=== PATIENT | male | born 1995 | race Native Hawaiian/Other Pacific Islander ===

== ENCOUNTER 2018-07-01 22:44 | Emergency (ER) | payer SELFPAY ==
[2018-07-01 23:10] VITALS: BP 116/74; PULSE 94; RESP 16; TEMP 98.5; O2SAT 98
[2018-07-01] MEDS ORDERED: Amoxicillin-Clav 875-125 mg Tab PO STA (23:21)
[2018-07-01] MEDS ORDERED: Tdap Vaccine 0.5 ml Vial (10-64 yrs) IM ONE ×2 (23:22→23:29)
--- NOTE | 2018-07-01 23:24 | C.PDOC ---
History Of Present Illness 22 year old male presents to the emergency department with complaints of a dog bite to the left leg sustained at 3pm earlier today. Patient states that he went to a dog adoption event, which is where he sustained the injury. Patient states that he believes the dog is up to date on vaccines. AFterwards he cleaned the area and applied antibiotic ointment to the area. Time Seen by Provider: 07/01/18 22:59 Chief Complaint (Nursing): Bite History Per: Patient History/Exam Limitations: no limitations Onset/Duration Of Symptoms: Hrs Current Symptoms Are (Timing): Still Present Location Of Injury: Left: Leg, Anterior: Leg Quality Of Symptoms: Painful - Animal Bite Description Of The Attack: Unprovoked Attack Description Of The Animal: Other ([facility] pet) Reports Animal Appears: Well Reports Animal's Immunization Status: UTD Past Medical History Reviewed: Historical Data, Nursing Documentation, Vital Signs Vital Signs: Last Vital Signs Temp 98.5 F 07/01/18 22:52 Pulse 94 H 07/01/18 22:52 Resp 16 07/01/18 22:52 BP 116/74 07/01/18 22:52 Pulse Ox 98 07/01/18 22:52 - Medical History PMH: No Chronic Diseases Surgical History: No Surg Hx Family History: States: No Known Family Hx - Social History Hx Alcohol Use: No Hx Substance Use: No - Immunization History Hx Tetanus Toxoid Vaccination: No Hx Influenza Vaccination: Yes Hx Pneumococcal Vaccination: No Review Of Systems Except As Marked, All Systems Reviewed And Found Negative. Skin: Positive for: Other (dog bite left leg) Neurological: Negative for: Weakness, Numbness Physical Exam - Physical Exam Appears: Well, Non-toxic, No Acute Distress Skin: Warm, Dry Head: Atraumatic, Normacephalic Eye(s): bilateral: Normal Inspection, EOMI Nose: Normal Oral Mucosa: Moist Chest: Symmetrical Respiratory: No Accessory Muscle Use, Other (speaking in full sentences) Extremity: Normal ROM, Other (puncture wound and superficial abrasion to the left anterior and medial thigh. ) Neurological/Psych: Oriented x3, Normal Speech, Normal Cognition, Other (no focal deficits) ED Course And Treatment O2 Sat by Pulse Oximetry: 98 (RA) Pulse Ox Interpretation: Normal Progress Note: Plan: Adacel 0.5ml IM. Augmentin 1 tab PO. Area cleansed, steri-strips placed on 0.5cm puncture wound to left anterior leg. Patient advised on proper wound care. Laceration - Laceration Repair left thigh Wound Length (In cm): 0.5 Description Of Wound: Linear Wound Cleansed With: Betadine, Sterile Saline Wound Examination: Irrigated With Saline, No FB With Wound Exploration, No Tendon Injury With Wound Exploration Wound Closure: Steri Strips Disposition - Disposition Disposition: HOME/ ROUTINE Disposition Time: 23:23 Condition: STABLE Additional Instructions: Keep area clean and dry . Watch for signs of infection including redness, swelling and discharge. Prescriptions: Amoxicillin/Clavulanate [Augmentin 875 MG-125 MG] 1 tab PO BID #14 tab Instructions: Animal Bites (DC) Forms: [employer] (Maltese) - Clinical Impression Clinical Impression: Animal bite wound - PA / SEC[employer]ARY [employer]UC[employer] / Resident Statement MD/DO has reviewed & agrees with the documentation as recorded. - Scribe Statement The provider has reviewed the documentation as recorded by the Scribe (Isidoro Yin) All medical record entries made by the Scribe were at my direction and personally dictated by me. I have reviewed the chart and agree that the record accurately reflects my personal performance of the history, physical exam, medical decision making, and the department course for this patient. I have also personally directed, reviewed, and agree with the discharge instructions and disposition.
[2018-07-01] MEDS ORDERED: Amoxicillin-Clav 875-125 mg Tab PO ONE (23:28)
== END 2018-07-01 23:40 | disposition home or self-care (01) ==
LOC: C.ER 22:44
DX: S71.152A Open bite, left thigh, initial encounter (principal); W54.0XXA Bitten by dog, initial encounter; Z23 Encounter for immunization